=== PATIENT | male | born 1940 | race Caucasian/White ===

== ENCOUNTER 2025-06-14 08:00 | Outpatient (CLI) | payer MEDICARE, SELFPAY ==
--- NOTE | ~2025-06-14 | PE_ITS ---
EXAMINATION: PET_PETPSMAST_PT DATE: 06/14/2025 10:40 INDICATION: Prostate cancer TECHNIQUE: 4.236 mCi of Illucix Ga-[id number]) was administered i.v. Low dose computed tomography (CT) images were acquired from the base of the brain to the base of the brain to the proximal thighs for attenuation correction and anatomic localization. Positron emission tomography (PET) images were acquired in the same distribution beginning 68 minutes after injection. Images including fused PET/CT images were reconstructed in axial, coronal, and sagittal planes. Automated exposure control technique was employed. The dose-length product was 926.91mGy-cm. COMPARISON: None FINDINGS: Head/neck: Typical pattern of symmetric physiologic increased activity in the lacrimal, parotid and submandibular glands as well as along the mucosa of the nasal and oral cavities, pharynx and hypopharynx. No pathologically enlarged cervical lymphadenopathy or suspicious foci of increased uptake in the visualized head or neck. Chest: Mild dependent atelectasis in all lobes of both lungs. No suspicious pulmonary nodules on the CT imaging. There is however a small focus of mild increased FDG uptake along the infrahilar bronchovascular bundle extending to the lateral basilar segment of the right lower lobe with maximal SUV of 4.9. No pleural effusion. Heart size is normal. Small of atherosclerotic coronary artery calcification. No pericardial effusion. There are few normal sized probably PSMA abdomen mediastinal lymph nodes, the larger measuring 9 x 5 mm with maximal SUV of 73.7 which is positioned between the aorta and the T7 vertebral body. The second subpleural lymph node positioned along the right anterior margin of the T9 vertebral body which measures 7 x 4 mm with maximal SUV of 36. There are couple additional tiny foci of mild uptake in the paraspinal tissues along the left anterior margin of T6 with maximal SUV of 3.8 and along the inferior margin of T8, also with maximal SUV of 3.8 but with nodules on CT too small to a ccurately measure. No pathologically enlarged thoracic lymphadenopathy. Abdomen/pelvis/proximal thighs: Physiologic renal accumulation and excretion of activity in the kidneys, bladder and along portions of ureters. Photopenic defects associated with bilateral renal cysts the exophytic cyst on the right measuring 2.0 cm and the largest parapelvic cyst at the left renal hilum measuring 2.2 cm. Prostatomegaly measuring 5.1 x 4.9 cm. There is prominent increased FDG uptake throughout much of the inferior prostate with maximal SUV of 62.3 with likely local invasion of the bilateral seminal vesicles where there is increased uptake with maximal SUV of 44.3 on the left and 30.9 on the right. There are multiple enlarged and FDG avid bilateral obturator, external iliac and common iliac chain lymph nodes in the pelvis with additional retroperitoneal lymphadenopathy extending cephalad along the aorta and inferior vena cava. For reference this includes the largest left obturator lymph node which measures 4.9 x 3.5 cm with maximal SUV of 129. There are also couple large FDG avid lymph nodes in the fat anterior to the right iliac crest the larger measuring 2.5 x 1.9 cm with maximal SUV of 114. Normal degree and slightly heterogenous pattern of increased uptake throughout the liver and spleen without radiologic correlate or dominant PSMA avid lesion. The gallbladder, pancreas and bilateral adrenal glands are normal. Moderate uptake scattered throughout the bowels with typical duodenal and proximal jejunal predominance and without radiologic correlate, also likely physiologic. Normal appendix. Small fat-containing umbilical hernia. 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 Mild upper thoracic levoscoliosis with compensatory dextrocurvature in the mid thoracic spine. No suspicious lytic, blastic or abnormally PSMA avid bone lesions. IMPRESSION: 1. Prominent increased activity in the prostate with extension into the bilateral seminal vesicles consistent with primary prostate cancer with local invasion of the seminal vesicles. 2. Multiple enlarged and FDG avid likely metastatic lymph nodes the largest most evident in the pelvis with progressively decreasing size and degree of uptake of additional retroperitoneal and posterior mediastinal lymph nodes in the abdomen and chest respectively. Reviewed, dictated and finalized at location A. IMPRESSION: 1. Prominent increased activity in the prostate with extension into the bilater al seminal vesicles consistent with primary prostate cancer with local invasion of the seminal vesicles. 2. Multiple enlarged and FDG avid likely metastatic lymph nodes the largest mos t evident in the pelvis with progressively decreasing size and degree of uptake of additional retroperitoneal and posterior mediastinal lymph nodes in the abd omen and chest respectively.
--- OUTSIDE RECORDS SUMMARY | 2025-06-14 08:22 | XMS_ITS | Clinical Summary ---
Author Organization [facility] Address [address] [place] [address] Phone Care Team Providers Care Color Control Supervisor Name Role Phone Provider, Unknown Primary Care Provider Unavaila ble Social History Tobacco Use Types Packs/Day Years Used Date Smoking Tobacco: Never Assessed Sex and Gender Information Value Date Recorded Sex Assigned at Not on file Legal Sex Male 8:03 PM CDT Gender Identity Not on file Sexual Orientation Not on file Plan of Treatment Health Maintenance Due Date Last Done Comments Hepatitis C Virus (HCV) Screening 1940 Zoster Immunization (1 of 2) 1991 Respiratory Syncytial Virus (RSV) Immunization (Adult) (1 - 1-dose 75+ series) 01/22/2016 Influenza Immunization (#1) 06/04/202507/05, 07/28/2021, 07/25/2020, Additional history exists SARS-COV-2 Immunization ( season) 2025 08/12/2021, 07/28/2021, 12/17/2020, Additional history exists DTaP/Tdap/Td Immunization Discontinued 10/30/2016 TdaP Immunization Completed 10/30/2016 Pneumococcal Immunization (50+ years) Completed 07/06/2018, 07/05/2018, 05/14/2017, Additional history exists Hepatitis B Immunization Aged Out No longer eligible based on patient's age to complete this topic Human Papillomavirus (HPV) Immunization Aged Out No longer eligible based on patient's age to complete this topic Meningococcal Immunization (ACWY) Aged Out No longer eligible based on patient's age to complete this topic Rotavirus Immunization Aged Out No lo nger eligible based on patient's age to complete this topic Care Teams Color Control Supervisor Relationship Specialty Start Date End Date Provider, Unknown UNKNOWN PCP - General 06/24/16
--- OUTSIDE RECORDS SUMMARY | 2025-06-14 08:22 | XMS_ITS | Clinical Summary ---
Author Organization [facility] Address [address] [place] [id number] Care Team Providers Care Calciner Operator Name Role Phone Vaughn Dutton MD Primary Care Provider [phone] Allergies No known active allergies Medications multivitamin tablet tablet take 1 tablet by oral route every day with food 0 0 04/22/20 15 Active cranberry 400 mg capsule take 1 capsule by oral route every day 0 0 10/28/19 16 Active ferrous sulfate 325 mg (65 mg of elemental iron) tabletIndicati ons:Iron Deficiency Anemia Take 1 tablet (325 mg total) by mouth daily with breakfast Active Bacillus coagulans (PROBIOTIC, B. COAGULANS, ORAL) Take by mouth Active ascorbic acid (ascorbic acid with jose hips) 500 mg tablet,chewabl e Active fluticasone propionate (FLONASE) 50 mcg/actuation nasal spray Administer 2 sprays into each nostril daily 3 each 4 07/17/20 24 Active ALPRAZolam (XANAX) 0.5 mg tabletIndicati ons:Generalize d anxiety disorder TAKE 1 TABLET BY MOUTH THREE TIMES A DAY 90 tablet 2 01/30/20 25 Active cyanocobalamin (Vitamin B-12) 1,000 mcg sublingual tabletIndicati ons:Prevention of Vitamin B12 Deficiency Take 1 tablet (1,000 mcg total) by mouth daily Active tamsulosin (FLOMAX) 0.4 mg extended release capsule Take 1 capsule (0.4 mg total) by mouth nightly Active ciprofloxacin (CIPRO) 500 mg tablet Take 1 tablet (500 mg total) by mouth 2 (two) times a day 6 tablet 05/15/20 25 Active Creon 24,000-76,000 -120,000 unit capsule TAKE 1 CAPSULE BY MOUTH 3 TIMES A DAY WITH MEALS. 100 capsule 05/31/20 25 Active propranoloL (INDERAL) 10 mg tablet TAKE 1 TABLET BY MOUTH TWICE A DAY 180 tablet 1 05/31/20 25 Active propranoloL (INDERAL) 10 mg tablet TAKE 1 TABLET BY MOUTH TWICE A DAY 180 tablet 1 12/28/19 25 025 Discontinued Creon 24,000-76,000 -120,000 unit capsule TAKE 1 CAPSULE BY MOUTH 3 TIMES A DAY WITH MEALS. 100 capsule 04/04/20 25 025 Discontinued Active Problems Problem Noted Date Diagnosed Date Elevated PSA 05/04/2025 Bleeding per rectum 11/09/2023 Assessment & Plan (11/09/2023 4:30 PM CHURCH SUPERVISOR): Patient had 1 transit episodes of bright red bleeding per rectum suggestive of local anal lesions secondary hemorrhoids. No pain and no associated symptoms. No recurrence. At this point patient was advised to drink plenty of fluids and maintain high-fiber diet or fiber supplements daily. He may use any [id number] medications for hemorrhoids such as preparation H. Patient to call for evaluation and endoscopy if the bleeding recurred. Irritable bowel syndrome with diarrhea Assessment & Plan (05/02/2025 3:57 PM CDT): Continues to have persistent diarrhea and bloating; has a vegetarian diet Recommend evaluation by GI for further evaluation and treatment options; focus on high-fiber diet in order to help with stool formation Continue Creon 1 capsule with meals Assessment & Plan (01/26/2025 4:30 PM CDT): Explosive diarrhea every few days; impacts quality of life Order for pancreatic elastase test; based on results would consider starting medications to help with symptom Assessment & Plan (10/22/2023 4:40 PM CHURCH SUPERVISOR): Stable, well controlled on current regimen Patient has spastic colon; may be related to history of Agent [place] exposure Patient reports symptoms are well controlled with Xanax 0.5 mg 2-3 times per day Without Xanax; patient has severe colonic spasms, pain and urgent diarrhea Will continue Xanax 0.5 mg t.i.d. to continue to monitor Unintentional weight loss 08/18/2023 Assessment & Plan (08/18/2023 11:10 AM CHURCH SUPERVISOR): Wt Readings from Last 3 Encounters: 08/18/23 78.1 kg (172 lb 3.2 oz) 07/12/23 78.4 kg (172 lb 14.4 oz) 06/02/23 77.7 kg (171 lb 6.4 oz) BMI Readings from Last 6 Encounters: 08/18/23 27.81 kg/m 07/12/23 27.92 kg/m 06/02/23 27.68 kg/m 01/05/23 28.10 kg/m 11/30/22 27.12 kg/m 10/07/22 29.12 kg/m As above weight has been stable since November with minor changes up and down No signs of any weight loss Benign prostatic hyperplasia with nocturia 08/18 Assessment & Plan (01/26/2025 4:29 PM CDT): Patient reports increased nocturia and urinary difficulties; no relief with previous medications Elevated PSA concerning for prostate enlargement or prostate cancer; retest PSA; refer to urology for further evaluations and interventional options Assessment & Plan (08/18/2023 11:29 AM CHURCH SUPERVISOR): Worsening sx Annual physical exam 07/12/2023 Assessment & Plan (07/12/2023 10:46 AM CDT): Discussed lifestyle modifications, diet and exercise. Routine blood work ordered/reviewed today. Yearly vision and dental examinations. Internal hemorrhoids 07/12/2023 Overview (07/12/2023): worsening at this time increase fiber in diet, refer to gi for fruther eval if bothersome has also been having worseing constipation Assessment & Plan (11/09/2023 4:30 PM CHURCH SUPERVISOR): Patient has no symptoms as he started high-fiber diet. Considering he has normal colonoscopy two thousand sixteen and asymptomatic status no further evaluation is needed. Patient to call our office for follow-up if the bleeding recurred. Restless leg syndrome 01/05/2023 Assessment & Plan (01/26/2025 4:30 PM CDT): Patient reports tingling in feet relief with heat or weight; consistent with restless legs syndrome, continue use of heat massage; if no relief, may consider treatment options Agoraphobia 10/07/2022 Benzodiazepine dependence 06/09/2022 Assessment & Plan (05/02/2025 3:57 PM CDT): No concerns for abuse or diversion; has been on Xanax 0.5 mg t.i.d. for extended duration without evidence of significant side effects Assessment & Plan (07/17/2024 1:22 PM CDT): Patient reports symptoms related to discontinuation or missed doses due to prescription and pharmacy availability Will decrease to 0.25 mg b.i.d., 0.5 mg nightly; continue to taper as tolerated Assessment & Plan (08/18/2023 12:26 PM CHURCH SUPERVISOR): Still pending psychaitry eval Still recommend stopping xanax Will decrease xanax to 0.25 mg bid prn discussed this at length - treatment options, withdrawal sx, dependence vs addicvtion pt states he has no anxiety and basically no reason to be on it but hesistant to come off it Declines therapist Has not scheduled with psychaitry either He does not want to drive to [place] or [facility] or even to [facility] for psychiatry eval But is hesistant to come off xanax for whatever reason but at the same time wants to be off it States that in the past he would keep extra in case he was unable to get more Assessment & Plan (07/12/2023 10:48 AM CDT): Still pending psychaitry eval Assessment & Plan (06/02/2023 9:34 AM CDT): Will refer to psychiatry For now continue xanax 0.5 mg bid Assessment & Plan (10/07/2022 12:38 PM CHURCH SUPERVISOR): Will wean him off now, can change to valium for a wean and then can start an ssri for anxiety 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 Assessment & Plan (02/03/2022 2:17 PM CDT): - New diagnosis, patient reports of chronic dry cough as well as mild heartburn suggestive of laryngeal pharyngeal reflux disease, scripts sent for Pepcid 40 mg to take nightly Memory loss 02/03/2022 Assessment & Plan (01/26/2025 4:29 PM CDT): Continues to have some difficulty with memory, some cognitive decline Continues to engage with regular mental exercises Will perform cognitive assessment at follow up appointment Continue mental activity S/P tonsillectomy 08/07/2021 Administrative encounter 08/09/2020 Assessment & Plan (06/12/2022 1:33 PM CDT): A(n) yearly Essence Enhanced Encounter has been performed today. Fred Cheung is up to date on screening tests. He is in need of None- no screening indicated at this time. He is not up to date on needed preventative vaccinations; He is in need of Influenza and Covid-19 (booster). Advising elevating feet above heart level to cut down on ankle swelling, do 2-3 times a day for 30 minutes as needed I believe the fatigue and low BP is related to propranolol, but before largescale changes I will want to get the labs and rule out anemia, renal disease Suspicion of esophageal stricture. Will look into getting EGD set up. For now, take pills with plenty of water, avoid large morsels, and chew 20 times before swallowing Prevagen is not supported with high-grade research, so as usual it is ' caveat emptor'. The ingredients don't appear to be harmful, but the amount of help it will give is likely not quantifiable from a clinical standpoint Add attila posadas supplement to help tamsulosin Assessment & Plan (08/09/2020 1:58 PM CHURCH SUPERVISOR): A yearly Annual [employer] Visit has been performed today. Fred Cheung is up to date on screening tests. He is in need of None- no screening indicated at this time- these have been ordered. He is not up to date on needed preventative vaccinations; needed vaccinations have been ordered unless otherwise declined as noted. Mood disorder (CMS/HCC) 08/06/2020 Assessment & Plan (06/02/2023 9:02 AM CDT): - chronic condition, not at goal Worsening since decrease in xanax as per patient - hx of anxiety, has dysthymia - has cut back from 1mg tid to 0.5 mg bid of alprazolam - will continue to wean- no other current medications - no SI, HI, +delusions, - no hallucinations - at this time would recommend eval by psychaitry - continue propranolol 20 mg qid Assessment & Plan (01/05/2023 10:35 AM CDT): - chronic condition, stable - hx of anxiety, has dysthymia - uses alprazolam 1mg PRN - will continue to wean- no other current medications - no SI, HI, delusions, hallucinations - continue current therapy Assessment & Plan (08/17/2021 5:10 PM CHURCH SUPERVISOR): - chronic condition, stable - hx of anxiety, has dysthymia - uses alprazolam 1mg PRN - no other current medications - no SI, HI, delusions, hallucinations - continue current therapy Assessment & Plan (08/09/2020 2:01 PM CHURCH SUPERVISOR): Continues to deal with feelings of melancholy, amplified by the pandemic and the resultant isolation orders. He denies SI/HI, and doesn't really admit to rakesh depression, but definitely dysthymia is present. He continues on alprazolam PRN, no current antidepressant on board Other dysphagia 02/02/2019 Assessment & Plan (10/07/2022 12:32 PM CHURCH SUPERVISOR): - chronic, mild, stable - reports hx of EGD in past with dilitation of esophagus?? - unable to review exact records but last EGD was in 2015 - there was an EGD in 2019 that was planned but cancelled needs new referral to GI - states that sx have been progressively worsened. recently had a bought of phglem coming up and diarrhea Sx are only present with taking pills no dysphagia with food or liquids Assessment & Plan (08/17/2021 5:11 PM CHURCH SUPERVISOR): - chronic, mild, stable - reports hx of EGD in past with dilitation of esophagus?? - unable to review exact records but last EGD was in 2015 - there was an EGD in 2019 that was planned but cancelled Agent orange exposure 12/29/2018 Assessment & Plan (07/17/2024 1:21 PM CDT): Patient exposed to agent orange will serve in the ; since then has had episodes of colitis, with diarrhea and intense urgency; will continue to monitor Assessment & Plan (10/22/2023 4:40 PM CHURCH SUPERVISOR): Patient has some continued health issues since exposure distant past Will continue to monitor Stage 2 chronic kidney disease 05/16/2017 Assessment & Plan (07/17/2024 1:21 PM CDT): Stable, most recent EGFR was 54, unclear if acute change versus progression Assessment & Plan (08/22/2021 4:24 AM CHURCH SUPERVISOR): - chronic, stable function overall. - Encouraged him to properly hydrate - monitor renal function regularly Macrocytic anemia 05/16/2017 Assessment & Plan (08/17/2021 5:10 PM CHURCH SUPERVISOR): - hx of anemia - takes iron supplements intermittently - most recent lab tests show normal blood count with normal iron studies Lab Results Component Value Date HGB 13.6 01/24/2021 Lab Results Component Value Date IRON 90 04/30/2017 TIBC 222 04/30/2017 Mixed hyperlipidemia 05/16/2017 Assessment & Plan (07/17/2024 1:21 PM CDT): Stable, generally well controlled, lipids are optimal to near optimal Encourage low-fat high-fiber diet Encouraged regular physical activity as tolerated Assessment & Plan (08/18/2023 11:09 AM CHURCH SUPERVISOR): Lab Results Component Value Date CHOL 170 01/05/2023 CHOL 182 06/09/2022 CHOL 178 08/07/2021 Lab Results Component Value Date HDL 46 01/05/2023 HDL 41 06/09/2022 HDL 43 08/07/2021 Lab Results Component Value Date LDLCALC 100 01/05/2023 LDLCALC 105 06/09/2022 LDLCALC 107 08/07/2021 LDL 121 10/13/2016 LDL 116 04/24/2016 LDL 108 2015 SCRLDL 107 04/30/2017 Lab Results Component Value Date TRIG 118 01/05/2023 TRIG 180 (H) 06/09/2022 TRIG 138 08/07/2021 No results found for: POCCHDLR No results found for: POCNONHDL No results found for: POCCHLPL At goal continue current regiemn Assessment & Plan (06/02/2023 9:02 AM CDT): Lab Results Component Value Date CHOL 170 01/05/2023 CHOL 182 06/09/2022 CHOL 178 08/07/2021 Lab Results Component Value Date HDL 46 01/05/2023 HDL 41 06/09/2022 HDL 43 08/07/2021 Lab Results Component Value Date LDLCALC 100 01/05/2023 LDLCALC 105 06/09/2022 LDLCALC 107 08/07/2021 LDL 121 10/13/2016 LDL 116 04/24/2016 LDL 108 2015 SCRLDL 107 04/30/2017 Lab Results Component Value Date TRIG 118 01/05/2023 TRIG 180 (H) 06/09/2022 TRIG 138 08/07/2021 No results found for: POCCHDLR No results found for: POCNONHDL No results found for: POCCHLPL At goal continue current regiemn Assessment & Plan (01/05/2023 10:35 AM CDT): Lab Results Component Value Date CHOL 182 06/09/2022 CHOL 178 08/07/2021 CHOL 189 01/24/2021 Lab Results Component Value Date HDL 41 06/09/2022 HDL 43 08/07/2021 HDL 48 01/24/2021 Lab Results Component Value Date LDLCALC 105 06/09/2022 LDLCALC 107 08/07/2021 LDLCALC 105 01/24/2021 LDL 121 10/13/2016 LDL 116 04/24/2016 LDL 108 2015 SCRLDL 107 04/30/2017 Lab Results Component Value Date TRIG 180 (H) 06/09/2022 TRIG 138 08/07/2021 TRIG 179 (H) 01/24/2021 No results found for: POCCHDLR No results found for: POCNONHDL No results found for: POCCHLPL At goal continue current regiemn Assessment & Plan (10/07/2022 12:26 PM CHURCH SUPERVISOR): Lab Results Component Value Date CHOL 182 06/09/2022 CHOL 178 08/07/2021 CHOL 189 01/24/2021 Lab Results Component Value Date HDL 41 06/09/2022 HDL 43 08/07/2021 HDL 48 01/24/2021 Lab Results Component Value Date LDLCALC 105 06/09/2022 LDLCALC 107 08/07/2021 LDLCALC 105 01/24/2021 LDL 121 10/13/2016 LDL 116 04/24/2016 LDL 108 2015 SCRLDL 107 04/30/2017 Lab Results Component Value Date TRIG 180 (H) 06/09/2022 TRIG 138 08/07/2021 TRIG 179 (H) 01/24/2021 No results found for: POCCHDLR No results found for: POCNONHDL No results found for: POCCHLPL At goal continue current regiemn Assessment & Plan (08/07/2021 12:08 PM CDT): - chronic, well controlled - currently not on any medications - continue with lifestyle control Lab Results Component Value Date CHOL 189 01/24/2021 CHOL 187 05/24/2020 CHOL 177 06/14/2019 Lab Results Component Value Date HDL 48 01/24/2021 HDL 45 05/24/2020 HDL 45 06/14/2019 Lab Results Component Value Date LDLCALC 105 01/24/2021 LDLCALC 113 05/24/2020 LDLCALC 104 06/14/2019 LDL 121 10/13/2016 LDL 116 04/24/2016 LDL 108 2015 SCRLDL 107 04/30/2017 Lab Results Component Value Date TRIG 179 (H) 01/24/2021 TRIG 146 05/24/2020 TRIG 142 06/14/2019 BPH associated with nocturia 05/16/2017 Assessment & Plan (05/02/2025 3:57 PM CDT): Stable, generally well controlled; continues to have some nighttime symptoms Has good relief with current medications Will continue to monitor Assessment & Plan (07/17/2024 1:21 PM CDT): Stable, well controlled; PSA within normal ranges; will continue to monitor closely At this time no significant symptoms except for nocturia Would recommend fluid restriction, stopping drinking fluids approximately 1-2 hours before bedtime Assessment & Plan (06/02/2023 9:04 AM CDT): - chronic, not at goal/worse - not on any medications - c/w Flomax 0.4mg nightly - recommend follow up PSA - reviewed most recent PSA, order placed for PSA Lab Results Component Value Date PSA 5.56 01/05/2023 PSA 5.45 06/09/2022 PSA 4.36 02/03/2022 Assessment & Plan (02/03/2022 2:20 PM CDT): - chronic, not at goal/worse - not on any medications - start Flomax 0.4mg nightly - recommend follow up PSA - reviewed most recent PSA, order placed for PSA Lab Results Component Value Date PSA 3.30 08/07/2021 PSA 2.54 05/24/2020 PSA 2.04 12/19/2018 Assessment & Plan (08/07/2021 12:10 PM CDT): - chronic, stable - not on any medications - recommend follow up PSA Lab Results Component Value Date PSA 2.54 05/24/2020 PSA 2.04 12/19/2018 PSA 3.50 11/04/2017 Assessment & Plan (08/09/2020 1:59 PM CHURCH SUPERVISOR): no change. Again recommended attila posadas Generalized anxiety disorder Assessment & Plan (05/02/2025 3:58 PM CDT): Stable, not well controlled, acutely worsening due to anxieties health; has psychological impact secondary to her unknown diagnosis, as well as psychological impact due to personal weakness and fatigue Continue Xanax 0.5 mg t.i.d. Assessment & Plan (01/26/2025 4:29 PM CDT): Mostly related to GI symptoms including diarrhea; long use of Xanax based on prior prescriptions Continue Xanax 0.5 mg t.i.d. p.r.n. 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:; patient reports he is able to tolerate dental procedures well Will continue to monitor Assessment & Plan (08/18/2023 11:40 AM CHURCH SUPERVISOR): Not at goal at this time Sometimes worsening sx States that he feels withdrawal sx from both propranolol and xanax Has been unable to see psychiatry found a psychaitrist at [facility] that takes their insurance Recommend establishing care States that he doesn't have any anxiety Still has thguohts of not being able to his medication in catastrophe situation Assessment & Plan (07/12/2023 10:46 AM CDT): Not at goal at this time Did not start his paxil Having issues with his medications Still taking his xanax scheduled Will cotninue to try to wean him off Had recent panic attack Assessment & Plan (06/02/2023 9:05 AM CDT): - chronic condition, stable - previously had mentioned that he likes have an extra pills to have between refills. Would recommend starting an ssri at this time Would recommend therapy as well Will continue with wean protocol, recommend either psychaitry referral or starting ssri/atypical Assessment & Plan (01/05/2023 10:24 AM CDT): - chronic condition, stable - currently on Alprazolam 1 mg BID PRN (intermodal dispatcher use), He likes have an extra pills to have between refills. Will send in 60 day refill at 130 pills. - currently well controlled - I would be hesitant to continue this xanax at [facility] time - had a refill recently will refer to psych Or change to klonopin/valium to wean off Will wean him off now, can change to valium for a wean and then can start an ssri for anxiety States that he has basically kept extra xanax because he was worried that he would be unable to get his medicine he may go into seizure - he says he is not a doomsday person but he is stillv tye worried that xanax may run out and he won't be able to get his medication, and states that he has extra incase that he would have to leave the country or hide out in case of a catastrophic event Would recommend therapy as well Will continue with wean protocol - will now decrease to 0.5 mg tid - then to 0.5 mg bid (with a 3rd prn) then to 0.5 mg bid, then 0.25 tid, then 0.25 bid then 0.25 daily and then stop Assessment & Plan (10/07/2022 12:44 PM CHURCH SUPERVISOR): - chronic condition, stable - currently on Alprazolam 1 mg BID PRN (intermodal dispatcher use), He likes have an extra pills to have between refills. Will send in 60 day refill at 130 pills. - currently well controlled - I would be hesitant to continue this xanax at [facility] time - had a refill recently will refer to psych Or change to klonopin/valium to wean off Will wean him off now, can change to valium for a wean and then can start an ssri for anxiety States that he has basically kept extra xanax because he was worried that he would be unable to get his medicine he may go into seizure - he says he is not a doomsday person but he is stillv tye worried that xanax may run out and he won't be able to get his medication, and states that he has extra incase that he would have to leave the country or hide out in case of a catastrophic event Would recommend therapy as well Currently taking 1 mg bid. Will put him on weaning schedule - will now decrease to 0.5 mg tid - then to 0.5 mg bid (with a 3rd prn) then to 0.5 mg bid, then 0.25 tid, then 0.25 bid then 0.25 daily and then stop Assessment & Plan (02/03/2022 2:19 PM CDT): - chronic condition, stable - currently on Alprazolam 1 mg BID PRN (senior living use), He likes have an extra pills to have between refills. Will send in 60 day refill at 130 pills. - currently well controlled - continue with current therapy Assessment & Plan (08/07/2021 12:18 PM CDT): - chronic condition, stable - currently on Alprazolam 1 mg daily PRN (senior living use) - currently well controlled - continue with current therapy Resolved Problems Problem Noted Date Diagnosed Date Resolved Date Frequent headaches 06/17/2022 3 Mitral valve prolapse 08/07/20212022 Assessment & Plan (08/17/2021 5:12 PM CHURCH SUPERVISOR): - hx of mitral valve prolapse - currently reports being on the Propranolol for this - currently on Propranolol 20 mg , often takes 2-3 tablets daily - may switch to metoprolol in future - asymptomatic at this time - no recent Echo - will review records from [facility], last Echo in 10/25/2014 without severe findings - reports hx of stress test with normal findings BMI 29.0-29.9,adult 08/09/2020 06/02/20 23 Assessment & Plan (10/07/2022 12:33 PM CHURCH SUPERVISOR): Wt Readings from Last 3 Encounters: 10/07/22 79.4 kg (175 lb) 06/17/22 80.3 kg (177 lb) 06/09/22 79.8 kg (176 lb) BMI Readings from Last 3 Encounters: 10/07/22 29.12 kg/m 06/17/22 29.45 kg/m 06/09/22 29.29 kg/m at goal of bmi <30 Continue diet and exercise BMI Follow-up includes: nutrition counseling and exercise counseling. Assessment & Plan (08/22/2021 4:23 AM CHURCH SUPERVISOR): - Wt Readings from Last 3 Encounters: 08/07/21 80.8 kg (178 lb 1.6 oz) 02/04/21 82 kg (180 lb 12.8 oz) 08/06/20 81.1 kg (178 lb 14.4 oz) Body mass index is 29.64 kg/m . - chronic, at goal, stable - BMI Follow-up includes: nutrition counseling, exercise counseling and education provided Assessment & Plan (08/09/2020 2:01 PM CHURCH SUPERVISOR): BMI Follow-up includes: nutrition counseling and exercise counseling. Encounters Date Type Department Care Team Description 05/15/2025 8:08 AM CDT Anesthesia Event [facility] [address] [place] [address] James Boles MD Alexander, Jeffrey Michael, DO 05/15/2025 8:00 AM CDT - 05/15/2025 9:00 AM CDT Surgery [facility] [address] [place] [address] Veronica Razo MD URONAV GUIDED PROSTATE BIOPSY 05/15/2025 6:28 AM CDT - 05/15/2025 9:55 AM CDT Hospital Encounter [facility] [address] [place] [address] Veronica Razo MD Elevated PSA Discharge Disposition: Discharge to home or self care 05/08/2025 12:15 PM CDT - 05/08/2025 11:59 PM CDT Hospital Encounter [facility]iology - Outpatient Center at [address] [address] Rectal pain Discharge Disposition: Discharge to home or self care 05/08/2025 11:45 AM CDT Office Visit [facility] at [address] [id number] Dolores Olson NP Rectal pain (Primary Dx); Coccydynia 05/08/2025 Results Follow-Up [facility] at [address] [address] Dolores Olson, JACQUI XR Sacrum Coccyx 2 or More Views 04/23/2025 10:15 AM CDT Office Visit [facility] at [address] [address] Vaughn Dutton MD Irritable bowel syndrome with diarrhea (Primary Dx); Benzodiazepine dependence (HCC); BPH associated with nocturia; Generalized anxiety disorder from Last 3 Months Immunizations Immunization Administration Dates Next Due Influenza, Quadrivalent, Hig h Dose, Preservative Free, Intrr 07/13/2022,07/28/2021,07/25/2020 Influenza, Quadrivalent, Spl it, Intramuscular 08/13/2015 Influenza, Trivalent, High D ose, Split, Preservative Free, Intramuscular 06/29/2019,07/05/2018,07/15/2017,07/14,08/12/2015 Influenza, Unspecified 08/17/2023,2022(Deferred: Patient Refused),07/10/2022(Deferred: Patient Refused),07/31/2021,07/06/2018, 017 Moderna SARS-CoV-2 Monovalen t Vaccination (12+ YRS) 08/12/2021,07/28/2021,12/17/2020,11/07 Pneumococcal Conjugate PCV 13 07/05/2018, 015 Pneumococcal Conjugate, Unspecified 07/06/2018 Pneumococcal Polysaccharide PPV23 05/14/2017 Tdap 10/30/2016 Surgical History Surgery Date Site/Laterality Comments TONSILLECTOMY Tonsillectomy ESOPHAGOGASTRODUODENOSCOPY 11/30/2022 COLONOSCOPY Medical History Medical History Date Comments Benign prostatic hyperplasia 2012 Daniel ign prostatic hypertrophy; Comments: OAC 10/25/2014 - Mitral valve prolapse MVP - Mitr al valve prolapse; Comments: OAC 10/25/2014 - echo's didn't turn up severe problem Herniated lumbar intervertebral disc 2012 Bulging lumbar disk; Comments: OAC 10/25/2014 - Anxiety disorder Anxiety Agent orange exposure 12/29/2018 Benzodiazepine dependence (HCC) 06/09/2022 Kidney stone Colitis Irritable bowel syndrome Family History Medical History Relation Name Comments Coronary artery disease Father No Known Problems Maternal Grandfather No Known Problems Maternal Grandmother Breast cancer Mother No Known Problems Paternal Grandfather No Known Problems Paternal Grandmother No Known Problems Sister Relation Name Status Comments Father Maternal Grandfather Maternal Grandmother Mother Paternal Grandfather Paternal Grandmother Sister Alive Social History Tobacco Use Types Packs/Day Years Used Date Smoking Tobacco: Never Smokeless Tobacco: Never Alcohol Use Standard Drinks/Week Comments Not Currently 0 (1 standard drink = 0.6 oz pur e alcohol) Humiliation, Afraid, Rape, and Kick questionnair e Answer Date Recorded Within the last year, have y ou been afraid of your partner or ex-partner? No 08/06/2020 Within the last year, have y ou been humiliated or emotionally abused in other ways by your partner or ex-partner? No Within the last year, have y ou been kicked, hit, slapped, or otherwise physically hurt by your partner or ex-partner? No 08/06/2020 Within the last year, have y ou been raped or forced to have any kind of sexual activity by your partner or ex-partner? No 08/06/2020 Social Connection and Isolation Panel Answer Date Recorded Frequency of Communication with Friends and Fami ly Not on file 08/06/2020 Frequency of Social Gatherings with Friends and Family Not on file 08/06/2020 How often do you attend methodist or baptism serv ices? Never 08/06/2020 Do you belong to any clubs o r organizations such as methodist groups, unions, fraternal or athletic groups, or school groups? No 08/06/2020 How often do you attend meet ings of the clubs or organizations you belong to? Never 08/06/2020 Are you , , di vorced, , never , or living with a partner? 08/06/2020 Overall Financial Resource Strain (CARDIA) Answe r Date Recorded How hard is it for you to pa y for the very basics like food, housing, medical care, and heating? Not very hard 08/06/2020 PHQ-2 Answer Date Recorded PHQ-2 Total Score (If total score is 3 or more points, staff should administer the PHQ-9) 0 04/23/2025 [facility] - Occupational Stress Questionnaire Answer Date Recorded Do you feel stress - tense, restless, nervous, or anxious, or unable to sleep at night because your mind is troubled all the time - these days? To some extent 08/06/2020 Exercise Vital Sign Answer Date Recorde d On average, how many days pe r week do you engage in moderate to strenuous exercise (like a brisk walk)? 7 days Minutes of Exercise per Session Not on file 08/06/2020 Hunger Vital Sign Answer Date Recorded Within the past 12 months, y ou worried that your food would run out before you got the money to buy more. Never true 08/06/20 20 Within the past 12 months, t he food you bought just didn't last and you didn't have money to get more. Never true 08/06/2020 PRAPARE - Transportation Answer Date Re corded In the past 12 months, has l ack of transportation kept you from medical appointments or from getting medications? No 12/2019 In the past 12 months, has l ack of transportation kept you from meetings, work, or from getting things needed for daily living? No 08/06/2020 AUDIT-C Answer Date Recorded Q1: How often do you have a drink containing alcohol? Never 05/15/2025 Q2: How many drinks containi ng alcohol do you have on a typical day when you are drinking? Patient does not drink Q3: How often do you have si x or more drinks on one occasion? Never 05/15/2025 Personal Safety Answer Date Recorded Have you ever been in or are you currently in a harmful physical or emotional relationship or is someone making you feel afraid or unsafe? Denies 05/15/2025 Education Answer Date Recorded What is the highest level of school you have completed or the highest degree you have received? 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 Gender Identity Not on file Sexual Orientation Straight 08/26/2021 11 :53 AM CHURCH SUPERVISOR Obstetrics History Last Filed Vital Signs Vital Sign Reading Time Taken Comments Blood Pressure 124/43 05/15/2025 9:46 AM CDT Pulse 56 05/15/2025 9:46 AM CDT Temperature 35.9 C (96.6 F) 05/15/2025 9:46 AM CDT Respiratory Rate 16 05/15/2025 9:46 AM CDT Oxygen Saturation 97% 05/15/2025 9:46 AM CDT Inhaled Oxygen Concentration - - Weight 76.1 kg (167 lb 12.3 oz) 05/15/2025 6:36 AM CDT Height 165.1 cm (5' 5) 05/15/2025 6:36 AM CDT Body Mass Index 27.92 05/15/2025 6:36 AM CDT Plan of Treatment Health Maintenance Due Date Last Done Comments Zoster Vaccine (1 of 2) 1991 Covid-19 Vaccine (2024-2 6 season) 2025 08/12/2021, 07/28/2021, 12/17/2020, Additional history exists Influenza Vaccine (#1) 2025 , 07/13/2022, 07/31/2021, Additional history exists Well Visit 65+ 07/17/2025 07/17/2024, 06/2023, 06/09/2022, Additional history exists Fall Risk Assessment 01/22/2026 01/22/2025, 07/17/2024, 10/22/2023, Additional history exists Depression Screening 04/23/2026 04/23/2025, 07/17/2024, 10/22/2023, Additional history exists DTaP/Tdap/Td Vaccine (2 - Td or Tdap) 10/30/2026 10/30/2016 Pneumococcal vaccine 65+ Completed 018, 07/05/2018, 05/14/2017, Additional history exists Hepatitis B Screening Completed 12/12/2024 Procedures Procedure Name Priority Date/Time Associated Diagnosis Comments SURGICAL PATHOLOGY Routine 05/15/2025 10:44 AM CDT Elevated PSA URONAV GUIDED PROSTATE BIOPSY 05/15/2025 8:09 AM CDT Elevated PSA Special Needs [facility] CONF#[id number] ECG 12-LEAD Routine 05/15/2025 7:12 AM CDT XR SACRUM COCCYX 2 OR MORE VIEWS Schedule BELA, Read BELA (Appt Today, Awaiting Results) 05/08/2025 12:37 PM CDT Rectal pain from Last 3 Months Results * Surgical pathology (05/15/2025 10:44 AM CDT) Tissue (Prostate, Needle Biopsy) 05/15/2025 7:09 AM CDT Tissue specimen (specimen) (Prostate, Needle Biopsy) 05/15/2025 7:09 AM CDT Tissue specimen (specimen) (Prostate, Needle Biopsy) 05/15/2025 7:09 AM CDT Tissue specimen (specimen) (Prostate, Needle Biopsy) 05/15/2025 7:09 AM CDT Tissue specimen (specimen) (Prostate, Needle Biopsy) 05/15/2025 7:09 AM CDT Tissue specimen (specimen) (Prostate, Needle Biopsy) 05/15/2025 7:09 AM CDT Tissue specimen (specimen) (Prostate, Needle Biopsy) 05/15/2025 7:09 AM CDT Tissue specimen (specimen) (Prostate, Needle Biopsy) 05/15/2025 7:09 AM CDT Tissue specimen (specimen) (Prostate, Needle Biopsy) 05/15/2025 7:09 AM CDT Tissue specimen (specimen) (Prostate, Needle Biopsy) 05/15/2025 7:09 AM CDT Tissue specimen (specimen) (Prostate, Needle Biopsy) 05/15/2025 7:09 AM CDT Tissue specimen (specimen) (Prostate, Needle Biopsy) 05/15/2025 7:09 AM CDT Tissue specimen (specimen) (Prostate, Needle Biopsy) 05/15/2025 7:44 AM CDT Narrative PATHOLOGY [facility] ([place]) - 05/18/2025 8:50 AM CDT EPIC results best viewed via link to PDF [facility] Department of Pathology [address] [place] [id number] Note to Patients: This report may contain a detailed description of human tissue sent by a health care provider to the laboratory for pathologic evaluation. The content of this report is essential for diagnosis and may provide important critical findings. This information may be unfamiliar to patients to review without a medical professional present. It is advised that the patient review this report in the presence of a health care provider who can answer questions and explain the details. Final Report with Addendum Patient Name: FRED CHEUNG Address: [address] [place] [address] [place] [address] Gender: M : 1940 (Age: 85) Service: Surgery Location: [facility] Hospital #: [id number] Patient Type: [facility] Taken: 05/15/2025 Received: 05/15/2025 Accessioned: 05/15/2025 Reported: 05/18/2025 Physician(s):Veronica Smallwood MD Diagnosis: Prostate, right lateral base, right medial base, right lateral mid, right medial mid, right lateral apex, right medial apex, left lateral base, left medial base, left lateral mid, left medial mid, left lateral apex, left medial apex, region of interest, biopsies - Prostatic adenocarcinoma, 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 Anson Barron MD PhD Report Electronically Reviewed and Signed Out By Anson Barron MD PhD 05/18/2025 08:50:54 Procedure/Addenda: Archive Tissue Molecular Test Addendum Comment A request for Molecular Archival Tissue Testing was received, which is to be performed on tissue from the attached case. The associated original pathology report, slides, and blocks were retrieved from archives. The pathologist (whose signature appears below) reviewed the original pathology report, examined the H&E slides, and selected the appropriate block for the specifications of the ordered Decipher molecular analysis. Materials were forwarded to [facility] where the testing will be performed. Note: Refer to scanned physician request. Francisco Javier Akers MDReport Electronically Reviewed and Signed Out By Francisco Javier Akers MD 06/01/2025 17:14:02 Specimen(s) Received: A: Right lateral base B: Right medial base C: Right lateral mid D: Right medial mid E: Right lateral apex F: right medial apex G: Left lateral base H: Left medial base I: Left lateral mid J: Left medial mid K: Left lateral apex L: Left medial apex M: Region of interest 1 Microscopic Description: Sections from the prostate core biopsy show multiple cores of prostatic parenchyma involved by cribriform glands and cords of neoplastic cells. PIN 4 combination immunohistochemical stains are performed on sections from blocks A, B, C, D, E, F, G, H, I, J, K, L, M. The stains show gain of the adenocarcinoma marker AMACR and loss of the myoepithelium generally. However, some myoepithelial encapsulated areas of similar architecture and cytomorphology are seen suggestive of a background of at least high-grade prostatic intraepithelial neoplasia if not intraductal carcinoma. Focal areas consistent with perineural invasion are present. Clinical/radiographic correlation is required. Clinical History: Elevated PSA. Uronav guided prostate biopsy. Gross Description: The specimen is submitted in thirteen containers labeled FRED FERNANDEZER. A. The first container is labeled right lateral base. It is 1 core of deleon tissue measuring 1.6 cm. Entirely in A. B. The second container is labeled right medial base. It is 1 core of deleon tissue measuring 1.9 cm. Entirely in B. C. The third container is labeled right lateral mid. It is 1 core of deleon tissue measuring 1.7 cm. Entirely in C. D. The fourth container is labeled right medial mid. It is 1 core of deleon tissue measuring 1.3 cm. Entirely in D. E. The fifth container is labeled right lateral apex. It is 1 core of deleon tissue measuring 1.5 cm. Entirely in E. F. The sixth container is labeled right medial apex. It is 1 core of deleon tissue measuring 1.7 cm. Entirely in F. G. The seventh container is labeled left lateral base. It is 1 core of deleon tissue measuring 1.7 cm. Entirely in G. H. The eighth container is labeled left medial base. It is 1 core of deleon tissue measuring 1.5 cm. Entirely in H. I. The ninth container is labeled left lateral mid. It is 1 core of deleon tissue measuring 1.7 cm. Entirely in I. J. The tenth container is labeled left medial mid. It is 1 core of deleon tissue measuring 1.6 cm. Entirely in J. K. The eleventh container is labeled left lateral apex. It is 1 core of deleon tissue measuring 1.6 cm. Entirely in K. L. The twelfth container is labeled left medial apex. It is 1 core of deleon tissue measuring 1.6 cm. Entirely in L. M. The thirteenth container is labeled region of interest. It is 3 cores of deleon tissue between 1.6 and 1.8 cm. Entirely in M. T.A. Freeman Betts., P.A./Jaimie Diego M.D. REPORT IMAGES AND SCANNED DOCUMENTS, IF INCLUDED, ONLY VIEWABLE IN PDF VERSION OF REPORT The performance characteristics of some immunohistochemical stains, fluorescence in-situ hybridization tests and immunophenotyping by flow cytometry cited in this report (if any) were determined by the Surgical Pathology Department at [facility] as part of an ongoing quality improvement consultant program and in compliance with federally mandated regulations drawn from the Clinical Laboratory Improvement Act of 1988 (CLIA '88). Some of these tests rely on the use of analyte specific reagents and are subject to specific labeling requirements by the US Food and Drug Administration. Such diagnostic tests may only be performed in a facility that is certified by the Department of Health and Human Services as a high complexity laboratory under CLIA '88. The FDA has determined that such clearance or approval is not necessary. This test is used for clinical purposes. It should not be regarded as investigational or for research. Nevertheless, federal rules concerning the medical use of analyte specific reagents require that the following disclaimer be attached to the report: This test was developed and its performance characteristics determined by the Surgical Pathology Department [facility]. It has not been cleared or approved by the U. S. Food and Drug Administration. Note for decalcified specimens: This assay has not been validated on decalcified tissues. Results should be interpreted with caution given the possibility of false negativity on decalcified specimens Veronica Smallwood MD LAB PATHOLOGY ORDERABLES Final Result Performing Organization Address [facility] Co de Phone Number PATHOLOGY [facility] ([place]) [address] [place] [id number] * ECG 12 lead (05/15/2025 7:12 AM CDT) 05/15/2025 7:12 AM CDT Narrative [facility] - 05/15/2025 8:04 AM CDT Vent Rate: 52 bpm RR Interval: 1148 msec W[place] Interval: 200 msec QRS Duration: 97 msec QT Interval: 350 msec QTC Interval: 329 msec P-R-T [place]ima: 70 - -10 - 58 degrees IMPRESSION: SINUS BRADYCARDIA INFERIOR MYOCARDIAL INFARCTION , PROBABLY OLD WITH POSTERIOR EXTENSION [40+ ms Q WAVE AND/OR ST/T ABNORMALITY IN II/aVFPROMINE WAVE IN V1/V2] MODERATE T-WAVE ABNORMALITY, CONSIDER LATERAL ISCHEMIA [-0.1+ mV T WAVE IN I/aVL/V5/V6] ABNORMAL ECG No change compared to prior EKG Electronically Signed By: Carlos Goldsmith MD [facility] [place] DO ECG ORDERABLES Fin al Result Performing Organization Address [facility] de Phone Number [facility] [employer] [facility] * XR Sacrum Coccyx 2 or More Views (05/08/2025 12:37 PM CDT) Anatomical Region Laterality Modality Pelvis, Body N/A Computed Radiogr aphy 05/08/2025 3:43 PM CDT Narrative 05/08/2025 3:43 PM CDT EXAM DESCRIPTION: XR SACRUM COCCYX 2 OR MORE VIEWS REASON FOR STUDY: Rectal pain/tailbone pain Pt states tailbone pain x 2-3 months Denies injury, states he is sitting most of the time No prior fx or surgeries TECHNIQUE: There are 3 radiographic view(s) of the sacrum and coccyx . COMPARISON: No prior FINDINGS: Normal mineralization. No acute fracture or dislocation. Sacroiliac joints are intact. Mild spondylosis lower lumbar spine. Atherosclerotic change. Soft tissues are otherwise unremarkable. IMPRESSION: 1. No acute fracture. 2. Mild spondylosis lower lumbar spine. THIS IS AN ELECTRONICALLY VERIFIED FINAL REPORT 05/08/2025 3:43 PM - Electronically signed by Mihir Braxton M.D. MJ: REJI Report ID: [id number] Reading Location: [id number] Procedure Note Mihir Braxton MD - 05/08/2025 EXAM DESCRIPTION: XR SACRUM COCCYX 2 OR MORE VIEWS REASON FOR STUDY: Rectal pain/tailbone pain Pt states tailbone pain x 2-3 months Denies injury, states he is sitting most of the time No prior fx or surgeries TECHNIQUE: There are 3 radiographic view(s) of the sacrum and coccyx . COMPARISON: No prior FINDINGS: Normal mineralization. No acute fracture or dislocation. Sacroiliacjoints are intact. Mild spondylosis lower lumbar spine. Atherosclerotic change. Soft tissues are otherwise unremarkable. IMPRESSION: 1. No acute fracture. 2. Mild spondylosis lower lumbar spine. THIS IS AN ELECTRONICALLY VERIFIED FINAL REPORT 05/08/2025 3:43 PM - Electronically signed by Mihir MENDOZA: REJI Report ID: [id number] Reading Location: [id number] Dolores Olson NP IMG XR PROCEDURES Final Result from Last 3 Months Insurance IDPA [facility] [employer] CHOICE MEDICARE PPO IDTN [facility] MEDICARE HMO Advance Directives For more information, please contact: [phone] * Full Code (Latest Code Status on File) Date Activated Date Inactivated Comments 11/30/2022 12:13 PM 11/30/2022 7:48 PM Care Teams Calciner Operator Relationship Specialty Start Date End [place] [address] PCP - General Family Medicine 10/22/23
--- OUTSIDE RECORDS SUMMARY | 2025-06-14 08:22 | XMS_ITS | Encounter Summary ---
Author Organization [facility] Healthcare Address [address] [place] [address] Care Team Providers Care Cellophane Tester Name Role Phone Vaughn Dutton MD Primary Care Provider [phone] Encounter Details Date Type Department Care Team (Late st Contact Info) Description 05/08/2025 Results Follow-Up [facility] at [address] [place] [address] Dolores Olson, CANVAS BASTER [address] [place] [address] XR Sacrum Coccyx 2 or More Views Social History Tobacco Use Types Packs/Day Years [...] file 08/06/2020 How often do you attend yarsanism or denominational serv ices? Never 08/06/2020 Do you belong to any clubs o r organizations such as yarsanism groups, unions, fraternal or athletic groups, or school groups? No 08/06/2020 How often do you attend meet ings of the clubs or organizations you belong to? Never 08/06/2020 Are you , , di vorced, , never , or living with a partner? 08/06/2020 AUDIT-C Answer Date Recorded Q1: How often do you have a drink containing alcohol? Never 05/07/2025 Q2: How many drinks containi ng alcohol do you have on a typical day when you are drinking? Patient does not drink Q3: How often do you have si x or more drinks on one occasion? Never 05/07/2025 Overall Financial Resource Strain (CARDIA) Answe r Date Recorded How hard is it for you to pa y for the very basics like food, housing, medical care, and heating? Not very hard 08/06/2020 PHQ-2 Answer Date Recorded PHQ-2 Total Score (If total score is 3 or more points, staff should administer the PHQ-9) 0 04/23/2025 [facility] - Occupational Stress [...] things needed for daily living? No 08/06/2020 Personal Safety Answer Date Recorded Have you ever been in or are you currently in a harmful physical or emotional relationship or is someone making you feel afraid or unsafe? Denies 07/15/2024 Education Answer Date Recorded What is the highest level of school you have completed or the highest degree you have received? 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 documented in this encounter Plan of Treatment Not on file documented as of this encounter Visit Diagnoses Not on filedocumented in this encounter Care Teams Cellophane Tester Relationship Specialty Start Date End [place] [address] PCP - General Family Medicine 10/22/23 documented as of this encounter
== END 2025-06-14 08:01 | disposition home or self-care (01) ==
PROVIDERS: PCP Hospitalist; Visit Provider Urology
DX: C61 Malignant neoplasm of prostate (principal)
CPT/HCPCS: 78815; A9596